=== PATIENT | male | born 1965 | race Caucasian/White ===

== ENCOUNTER → 2020-09-03 10:07 | Outpatient (CLI) | payer OTHER, SELFPAY ==
[2020-09-03 11:34] LABS: COVID19 -Nasal RAPID Negative (Negative)
== END ==
PROVIDERS: PCP Family Medicine; Visit Provider Surgery
DX: Z01.812 Encounter for preprocedural laboratory examination (principal); Z20.822 Contact with and (suspected) exposure to COVID-19
CPT/HCPCS: 87635; C9803

== ENCOUNTER 2020-09-04 10:13 | Day surgery (SDC) | payer OTHER, SELFPAY ==
[2020-08-28 08:24] VITALS: BMI 29.9
[2020-09-04] VITALS (8 sets, daily range): BP systolic 119–136; BP diastolic 71–82; PULSE 53–59; RESP 12–20; TEMP 35.9–37.1; O2SAT 92–100; BMI 29.9
[2020-09-04] MEDS: LACTATED RINGERS 1,000 ML 42 ML IV (10:36)
--- NOTE | 2020-09-04 10:43 | PM.HP.1 ---
History of Present Illness History of Present Illness Date Patient Seen: 09/04/20 Time Patient Seen: 10:43 Chief complaint: SDC Narrative: 55-year-old male with a symptomatic reducible umbilical hernia here for elective repair. Please refer to the H& P from June 2020 for further detail. There have been no interval changes in his health. Patient History Medical History Arthritis BPH (benign prostatic hyperplasia) Diabetes HTN (hypertension) EUNICE (obstructive sleep apnea) Pneumonia Surgical History (Updated 08/28/20 @ 08:25 by Freida Tobin RN) History of total right hip arthroplasty (12/2013) Family & Social History Family History (Updated 07/11/20 @ 09:55 by Noemy Bowens RN) Mother Hypertension Social History: household members spouse,children Tobacco & Substance use: Tobacco type cigarettes Smoking Status Current every day smoker alcohol intake current Substance Use Type does not use Meds Home Medications and Allergies Home Medications Medication Instructions Recorded Confirmed Type lisinopril 20 mg tablet 20 mg PO DAILY 07/11/20 09/04/20 History metformin 500 mg tablet 500 mg PO DAILY 07/11/20 09/04/20 History tamsulosin 0.4 mg capsule 0.4 mg PO DAILY 07/11/20 09/04/20 History Allergies Allergy/AdvReac Type Severity Reaction Status Date / Time hydrocodone Allergy Intermediate Verified 09/04/20 10:30 From VICODIN Allergy Intermediate INCREASED Uncoded 07/11/20 09:52 HR-DIDN'T FEEL RIGHT Review of Systems Review of Systems ROS: Yes All systems reviewed with the patient and are negative except as otherwise documented Exam Narrative Exam Narrative: GENERAL-well developed adult male, no acute distress HEENT-no scleral icterus, hearing intact NECK-no JVD, trachea midline CVS- regular rate, no peripheral edema RESP-unlabored respiratory effort, no audible wheezing GI-soft, moderate size reducible umbilical hernia MSK-no cyanosis or clubbing, extremities without deformity SKIN-warm, dry NEURO-alert and oriented, no focal deficits PYSCH-Appropriate mood and affect Assessment & Plan Assessment and plan (1) Umbilical hernia: Qualifiers: Obstruction and gangrene presence: without obstruction or gangrene Qualified Code(s): K42.9 - Umbilical hernia without obstruction or gangrene Status: Acute Assessment & Plan narrative: 55-year-old male with a reducible umbilical hernia here for elective open umbilical hernia repair. Technical details of the operation were discussed with the patient. Operative risks including bleeding infection damage to surrounding structures hernia recurrence seroma formation were discussed. His questions have been answered he is in agreement with this plan.
[2020-09-04] MEDS: CEFAZOLIN 1 GM VIAL 2 GM IV (10:59)
--- NOTE | 2020-09-04 11:09 | SUR.OPER ---
Supine on padded OR bed, head on pillow, arms secured on padded arm boards at <90 degrees abduction, legs uncrossed, safety belt at thigh, tape over blanket over lower legs.
[2020-09-04] MEDS: BUPIVACAINE 0.5% (PF) VIAL 30 ML INJ (11:14)
--- NOTE | 2020-09-04 11:55 | P.OP_ITS ---
Operative Date/Time/Diagnoses Date of procedure: 09/04/20 Time of procedure: 11:55 Pre-op diagnosis: Umbilical reducible Post-op diagnosis: same Procedure & Clinicians Procedure: Open umbilical hernia repair with mesh Same procedure as scheduled: Yes Indications: Reducible umbilical hernia Surgeon: Dillon Menendez Anesthesia Type: General Operative Notes Findings: Viable omentum within the hernia sac Specimen(s): none sent Estimated Blood Loss (mL): 20 Procedure in detail: Patient was brought to the operating room placed supine on the table. Bilateral lower extremity compression devices were applied. General anesthesia was induced and they were intubated with an endotracheal tube. They received 2 g of Ancef prior to skin incision. They were prepped and draped in sterile fashion. A time-out was performed. A curvilinear incision was made inferior to the umbilicus. The subcutaneous tissues were divided. The umbi lical hernia was identified and the hernia sac was dissected off the umbilical skin and circumferentially off of the fascia defect. The hernia sac was sharply opened and contained viable omentum. The omentum was reduced back into the abdomen. Using blunt dissection I carefully carefully freed the hernia sac from beneath the fascia defect in order to accomodate the mesh. The fascia defect was 2 cm in maximal diameter. A Bard Ventralex ST hernia patch 4 cm was inserted beneath the fascia defect and above the peritoneum in a sublay position. The mesh was anchored in multiple locations using Ethibond suture to the fascia and the fascial defect was closed over the mesh. The umbilical skin was tacked to the subcutaneous tissues and then the remainder of the subcutaneous tissues were reapproximated using 3 0 Vicry,l skin closed with 4 0 Monocryl followed by the application of Dermabond and Steri-Strips. Sponge instrument count at the end of the operation was correct. Patient tolerated procedure well was extubated and transferred to postoperative care unit in stable condition. Complications: none Post-operative Condition: stable Disposition: same day surgery
[2020-09-04] MEDS: fentaNYL 100 MCG/2 ML INJ IV (12:03)
[2020-09-04] MEDS: OXYCODONE/ACETAMINOPHEN 5/325 TABLET 1 TAB PO (12:06)
--- NOTE | 2020-09-04 12:34 | SUR.PHASEI ---
Stable PACU stay, pt initially on 02, weaned off, medicated with fentanyl and percocet. To OPD.
== END 2020-09-04 12:50 | disposition home or self-care (01) ==
PROVIDERS: PCP Family Medicine; Referring Provider Surgery; Visit Provider Surgery
PROC: (CPT 49585; principal; 2020-09-04 11:15)
DX: K42.9 Umbilical hernia without obstruction or gangrene (principal); G47.33 Obstructive sleep apnea (adult) (pediatric); E66.9 Obesity, unspecified; I10 Essential (primary) hypertension; E11.9 Type 2 diabetes mellitus without complications; Z79.84 Long term (current) use of oral hypoglycemic drugs
CPT/HCPCS: 49585; 82962; C1781; J0690; J1100; J1885; J2250; J2405; J2704; J3010